=== PATIENT | male | born 1995 | race Caucasian/White ===

== ENCOUNTER 2016-08-04 00:35 | Emergency (ER) | payer MEDICAID ==
[~2016-08-04] VITALS: Ht 185.4 cm; Wt 65.5 kg
[~2016-08-04 00:35] MED LIST: DICY10CA3 PO; HYDR-3240 PO; INSU100C5 SQ-INSULIN; INSU100V8 SQ; RANI150C PO
[2016-08-04 00:36] VITALS: BP 135/89
[2016-08-04] MEDS ORDERED: CYCLOBENZAPRINE 10 MG TABLET ONE (01:14)
[2016-08-04] MEDS ORDERED: HYDROcodone/APAP 5/325 TABLET ONE (01:14)
[2016-08-04] MEDS ORDERED: HYDROcodone/APAP 5/325 TABLET PO ONE (01:30)
[2016-08-04] MEDS ORDERED: CYCLOBENZAPRINE 10 MG TABLET PO SCH (01:30)
== END 2016-08-04 01:46 | disposition home or self-care (01) ==
LOC: ED 01:36
DX: S33.5XXA Sprain of ligaments of lumbar spine, initial encounter (principal); S30.0XXA Contusion of lower back and pelvis, initial encounter; E11.65 Type 2 diabetes mellitus with hyperglycemia; W11.XXXA Fall on and from ladder, initial encounter; Y93.89 Activity, other specified; Y92.89 Other specified places as the place of occurrence of the external cause; Y99.8 Other external cause status
CPT/HCPCS: 99283

== ENCOUNTER 2016-11-14 01:54 | Emergency (ER) | payer MEDICAID ==
[~2016-11-14] VITALS: Ht 182.9 cm; Wt 63.7 kg
[2016-11-14] MEDS ORDERED: LIDOCAINE 1%, 20ML ONE (03:22)
[2016-11-14] MEDS ORDERED: OXYcodone/APAP 5/325MG TABLET ONE (03:22)
[2016-11-14] MEDS ORDERED: LIDOCAINE 1%, 20ML SQ ONE (03:30)
[2016-11-14] MEDS ORDERED: SULFAMETH./TRIMETHOPRIM DS 800MG/160MG TABLET PO ONE (03:30)
[2016-11-14] MEDS ORDERED: OXYcodone/APAP 5/325MG TABLET PO ONE (03:30)
[2016-11-14] MEDS ORDERED: SULFAMETH./TRIMETHOPRIM DS 800MG/160MG TABLET ONE (03:49)
[2016-11-14 04:31] VITALS: BP 131/78
== END 2016-11-14 04:40 | disposition home or self-care (01) ==
LOC: ED 02:53
DX: L02.416 Cutaneous abscess of left lower limb (principal); E11.9 Type 2 diabetes mellitus without complications; F17.210 Nicotine dependence, cigarettes, uncomplicated
CPT/HCPCS: 10060; 99283

== ENCOUNTER 2016-11-15 12:18 | Emergency (ER) | payer MEDICAID ==
[~2016-11-15] VITALS: Ht 182.9 cm; Wt 62.7 kg
[2016-11-15 12:23] VITALS: BP 128/80
== END 2016-11-15 12:45 | disposition home or self-care (01) ==
LOC: ED 12:43
DX: Z48.01 Encounter for change or removal of surgical wound dressing (principal)
CPT/HCPCS: 99283

== ENCOUNTER 2016-12-01 15:49 | Emergency (ER) | payer MEDICAID ==
[~2016-12-01] VITALS: Ht 185.4 cm; Wt 63.0 kg
[2016-12-01 15:57] VITALS: BP 135/80
[2016-12-01] MEDS ORDERED: IBUPROFEN 200 MG TABLET PO ONE (16:30)
[2016-12-01] MEDS ORDERED: CEFAZOLIN 1,000 MG IM ONE (16:30)
[2016-12-01] MEDS ORDERED: CEFAZOLIN 1,000 MG ONE (17:11)
[2016-12-01] MEDS ORDERED: IBUPROFEN 200 MG TABLET ONE (17:11)
== END 2016-12-01 17:38 | disposition home or self-care (01) ==
LOC: ED 17:05
DX: L03.116 Cellulitis of left lower limb (principal); E11.9 Type 2 diabetes mellitus without complications
CPT/HCPCS: 73564; 96372; 99284; J0690

== ENCOUNTER 2017-05-18 06:10 | Emergency (ER) | payer MEDICAID ==
[~2017-05-18] VITALS: Ht 180.3 cm; Wt 68.0 kg
[2017-05-18] MEDS ORDERED: SODIUM CHLORIDE FLUSH 10ML SYR IVF ONE (07:00)
[2017-05-18] MEDS ORDERED: SODIUM CHLORIDE 0.9% 1,000ML IVBOLUS ONE (07:00)
[2017-05-18] MEDS ORDERED: MORPHINE SULFATE 4 MG/ML, 1ML ONE (07:24)
[2017-05-18] MEDS ORDERED: ONDANSETRON 2MG/ML, 2ML ONE (07:24)
[2017-05-18 07:28] LABS: ALANINE AMINOTRANSFERASE 28 U/L (12-78); ALBUMIN 3.4 g/dL (3.4-5.0); ANION GAP 9 mmol/L (5-15); CALCIUM 8.4 mg/dL (8.5-10.1); CHLORIDE 105 mmol/L (98-107); MEAN CORPUSCULAR HEMOGLOBIN 30.5 pg (27.5-34.5); MEAN CORPUSCULAR HGB CONC 33.7 g/dL (33.2-36.2); MEAN CORPUSCULAR VOLUME 90.5 fL (81-97); MEAN PLATELET VOLUME 8.8 fL (7.4-10.4); PLATELET COUNT 252 x10^3/uL (130-400); RED BLOOD COUNT 4.43 x10^6/uL (4.38-5.82); RED CELL DISTRIBUTION WIDTH 12.6 % (9.4-14.8)
[2017-05-18 07:30] LABS: ALKALINE PHOSPHATASE 101 U/L (45-117); BILIRUBIN,TOTAL 0.3 mg/dL (0.2-1.0); TOTAL PROTEIN 6.3 g/dL (6.4-8.2)
[2017-05-18] MEDS ORDERED: ONDANSETRON 2MG/ML, 2ML IVPush ONE (07:30)
[2017-05-18] MEDS ORDERED: morphine SULFATE 10 MG/ML, 1ML IVPush ONE (07:30)
[2017-05-18 07:37] LABS: PH, VENOUS 7.398 pH (7.320-7.420)
[2017-05-18 07:38] LABS: BASOPHILS # (AUTO) 0.08 x10^3/uL (0-0.1); BASOPHILS % (AUTO) 1 % (0-1); EOSINOPHILS # (AUTO) 0.19 x10^3/uL (0-0.4); EOSINOPHILS % (AUTO) 2 % (1-7); LYMPHOCYTES # (AUTO) 2.92 x10^3/uL (1-3.4); LYMPHOCYTES % (AUTO) 31 % (22-44); MD SCAN; MONOCYTES # (AUTO) 0.62 x10^3/uL (0.2-0.8); MONOCYTES % (AUTO) 7 % (2-9); NEUTROPHILS # (AUTO) 5.62 x10^3/uL (1.8-6.8); NEUTROPHILS % (AUTO) 60 % (42-75)
[2017-05-18] MEDS ORDERED: OMNIPAQUE 350 MG/ML, 100ML BOTTLE ONE (07:53)
[2017-05-18] MEDS ORDERED: MAALOX/HYOSCYAMINE/LIDOCAINE 45 ML BTL PO ONE (08:00)
[2017-05-18] MEDS ORDERED: MAALOX/HYOSCYAMINE/LIDOCAINE 45 ML BTL ONE (08:02)
[2017-05-18 08:27] LABS: MICROSCOPIC AUTO
[2017-05-18 08:30] LABS: CULTURE INDICATED? YES
[2017-05-18 08:35] LABS: AMPHETAMINE SCREEN, URINE Negative (Negative); BARBITURATE SCREEN, URINE Negative (Negative); BENZODIAZEPINE SCREEN, URINE Negative (Negative); CANNABINOID SCREEN, URINE Negative (Negative); COCAINE SCREEN, URINE Negative (Negative); METHADONE SCREEN, URINE Negative (Negative); OPIATE SCREEN, URINE Positive (Negative)
[2017-05-18 08:38] LABS: ACETONE, SERUM Negative (Negative)
[2017-05-18 10:32] VITALS: BP 133/90
== END 2017-05-18 10:34 | disposition home or self-care (01) ==
LOC: ED 07:49
DX: K29.70 Gastritis, unspecified, without bleeding (principal); K21.9 Gastro-esophageal reflux disease without esophagitis; N39.0 Urinary tract infection, site not specified; E11.65 Type 2 diabetes mellitus with hyperglycemia; E11.649 Type 2 diabetes mellitus with hypoglycemia without coma; F17.200 Nicotine dependence, unspecified, uncomplicated; E11.10 Type 2 diabetes mellitus with ketoacidosis without coma
CPT/HCPCS: 36415; 74177; 80053; 80307; 81001; 82010; 82803; 83690; 85025; 86677; 87086; 87491; 87591; 96361; 96374; 96375; 99285; J2270; J2405; J7030; Q9967

== ENCOUNTER 2017-08-06 04:30 | Inpatient (IN) | payer MEDICAID ==
[~2017-08-06] VITALS: Ht 182.9 cm; Wt 60.7 kg
[~2017-08-06 04:30] MED LIST changes: +INSU100V SQ-INSULIN
[2017-08-06] MEDS ORDERED: MORPHINE SULFATE 4 MG/ML, 1ML ONE ×3 (04:50→07:03)
[2017-08-06] MEDS ORDERED: METOCLOPRAMIDE 5 MG/ML, 2ML ONE (04:51)
[2017-08-06] MEDS ORDERED: FAMOTIDINE 20 MG/2 ML ONE (04:59)
[2017-08-06] MEDS: MORPHINE SULFATE 4 MG/ML, 1ML IVPush PRN ×2 (05:00→06:18)
[2017-08-06] MEDS ORDERED: METOCLOPRAMIDE 5 MG/ML, 2ML IVPush ONE (05:00)
[2017-08-06] MEDS ORDERED: FAMOTIDINE 20 MG/2 ML IVP ONE (05:00)
[2017-08-06] MEDS ORDERED: SODIUM CHLORIDE 0.9% 1,000ML IVBOLUS ONE ×3 (05:00→07:30)
[2017-08-06 05:40] LABS: BASOPHILS # (AUTO) 0.03 x10^3/uL (0-0.1); BASOPHILS % (AUTO) 0 % (0-1); EOSINOPHILS # (AUTO) 0.02 x10^3/uL (0-0.4); EOSINOPHILS % (AUTO) 0 % (1-7); LYMPHOCYTES # (AUTO) 2.58 x10^3/uL (1-3.4); LYMPHOCYTES % (AUTO) 24 % (22-44); MD NO; MEAN CORPUSCULAR HEMOGLOBIN 31.2 pg (27.5-34.5); MEAN CORPUSCULAR HGB CONC 33.3 g/dL (33.2-36.2); MEAN CORPUSCULAR VOLUME 93.8 fL (81-97); MEAN PLATELET VOLUME 9.5 fL (7.4-10.4); MONOCYTES # (AUTO) 0.46 x10^3/uL (0.2-0.8); MONOCYTES % (AUTO) 4 % (2-9); NEUTROPHILS # (AUTO) 7.82 x10^3/uL (1.8-6.8); NEUTROPHILS % (AUTO) 72 % (42-75); PLATELET COUNT 263 x10^3/uL (130-400); RED BLOOD COUNT 5.26 x10^6/uL (4.38-5.82); RED CELL DISTRIBUTION WIDTH 12.5 % (9.4-14.8)
[2017-08-06 05:42] LABS: CULTURE INDICATED? NO; MICROSCOPIC NOT IND
[2017-08-06 05:53] LABS: ALANINE AMINOTRANSFERASE 51 U/L (12-78); ALBUMIN 4.1 g/dL (3.4-5.0); ANION GAP 24 mmol/L (5-15); CALCIUM 9.2 mg/dL (8.5-10.1); CHLORIDE 95 mmol/L (98-107); CREATININE 1.52 mg/dL (0.7-1.3); PH, VENOUS 7.186 pH (7.320-7.420)
[2017-08-06 05:56] LABS: ALKALINE PHOSPHATASE 164 U/L (45-117); TOTAL PROTEIN 7.9 g/dL (6.4-8.2)
[2017-08-06] MEDS ORDERED: FENTANYL PF 100 MCG/2ML IVPush STA (06:09)
[2017-08-06 06:13] LABS: AMPHETAMINE SCREEN, URINE Negative (Negative); BARBITURATE SCREEN, URINE Negative (Negative); BENZODIAZEPINE SCREEN, URINE Negative (Negative); CANNABINOID SCREEN, URINE Negative (Negative); COCAINE SCREEN, URINE Negative (Negative); METHADONE SCREEN, URINE Negative (Negative); OPIATE SCREEN, URINE Negative (Negative)
[2017-08-06] MEDS ORDERED: PROMETHAZINE 25 MG/ML, 1ML ONE (06:13)
[2017-08-06] MEDS ORDERED: ONDANSETRON ODT 4 MG PO ONE (06:30)
[2017-08-06] MEDS ORDERED: PROMETHAZINE 25 MG/ML, 1ML IM ONE (06:30)
[2017-08-06] MEDS ORDERED: INSULIN REGULAR 100 UNITS/ML, 3ML VIAL SQ-INSULIN STA (06:35)
[2017-08-06] MEDS ORDERED: FENTANYL PF 100 MCG/2ML ONE (06:41)
[2017-08-06 06:42] LABS: ACETONE, SERUM Large (80mg/dL) mg/dL (Negative)
[2017-08-06] MEDS ORDERED: INSULIN REGULAR 100 UNITS/ML, 3ML VIAL IVPush ONE (07:00)
[2017-08-06] MEDS ORDERED: INSULIN REGULAR 100 UNITS/ML, 3ML VIAL ONE (07:04)
[2017-08-06] MEDS ORDERED: MORPHINE SULFATE 4 MG/ML, 1ML IVPush ONE (07:30)
[2017-08-06] MEDS ORDERED: DOCUSATE 100 MG CAPSULE PO PRN (09:00)
[2017-08-06] MEDS ORDERED: POLYETHYLENE GLYCOL 17 GM PACKET PO PRN (09:00)
[2017-08-06] MEDS ORDERED: BISACODYL 10 MG SUPP PR PRN (09:00)
[2017-08-06] MEDS ORDERED: ONDANSETRON 2MG/ML, 2ML IVPush PRN (09:00)
[2017-08-06] MEDS ORDERED: KETOROLAC 30 MG/1 ML IM PRN (09:00)
[2017-08-06] MEDS ORDERED: ACETAMINOPHEN 325 MG TABLET PO PRN (09:00)
[2017-08-06 09:45] LABS: ANION GAP 22 mmol/L (5-15); CALCIUM 8.5 mg/dL (8.5-10.1); CHLORIDE 109 mmol/L (98-107); CREATININE 1.54 mg/dL (0.7-1.3)
[2017-08-06] MEDS: FAMOTIDINE 20 MG TABLET PO SCH ×2 (09:59→20:15)
[2017-08-06] MEDS ORDERED: SODIUM CHLORIDE 0.9% 1,000 ML IV SCH ×2 (10:00→12:02)
[2017-08-06] MEDS ORDERED: REGULAR INSULIN 62.5 UNITS in SODIUM CHLORIDE 0.9% 249.375 ML IV PRN (10:00)
[2017-08-06 12:07] LABS: HEMOGLOBIN A1C 11.1 % (4.2-6.3)
[2017-08-06] MEDS: HEPARIN 5,000 UNITS/ML, 1ML SQ SCH ×2 (12:12→20:15)
[2017-08-06 13:06] LABS: ALBUMIN 3.9 g/dL (3.4-5.0); ANION GAP 21 mmol/L (5-15); CALCIUM 8.5 mg/dL (8.5-10.1); CHLORIDE 113 mmol/L (98-107); CREATININE 1.39 mg/dL (0.7-1.3)
[2017-08-06] MEDS: D5%-0.45% NACL 1,000 ML IV SCH (16:30)
[2017-08-06 18:15] LABS: ANION GAP 11 mmol/L (5-15); CALCIUM 8.8 mg/dL (8.5-10.1); CHLORIDE 117 mmol/L (98-107); CREATININE 1.17 mg/dL (0.7-1.3)
[2017-08-06 21:21] LABS: ALBUMIN 3.4 g/dL (3.4-5.0); ANION GAP 10 mmol/L (5-15); CALCIUM 8.1 mg/dL (8.5-10.1); CHLORIDE 115 mmol/L (98-107); CREATININE 1.07 mg/dL (0.7-1.3)
[2017-08-07 02:10] LABS: ALBUMIN 3.3 g/dL (3.4-5.0); ANION GAP 9 mmol/L (5-15); CALCIUM 8.3 mg/dL (8.5-10.1); CHLORIDE 113 mmol/L (98-107); CREATININE 1.06 mg/dL (0.7-1.3)
[2017-08-07] MEDS: HEPARIN 5,000 UNITS/ML, 1ML SQ SCH (04:17)
[2017-08-07] MEDS: D5%-0.45% NACL 1,000 ML IV SCH (04:17)
[2017-08-07 04:19] VITALS: BP 97/58
[2017-08-07 05:18] LABS: MEAN CORPUSCULAR HEMOGLOBIN 31.2 pg (27.5-34.5); MEAN CORPUSCULAR HGB CONC 34.1 g/dL (33.2-36.2); MEAN CORPUSCULAR VOLUME 91.5 fL (81-97); MEAN PLATELET VOLUME 8.2 fL (7.4-10.4); PLATELET COUNT 235 x10^3/uL (130-400); RED BLOOD COUNT 4.24 x10^6/uL (4.38-5.82); RED CELL DISTRIBUTION WIDTH 12.5 % (9.4-14.8)
[2017-08-07 05:21] LABS: ANION GAP 9 mmol/L (5-15); CHLORIDE 112 mmol/L (98-107)
[2017-08-07 05:23] LABS: CREATININE 0.94 mg/dL (0.7-1.3)
[2017-08-07 06:24] LABS: BASOPHILS # (AUTO) 0.04 x10^3/uL (0-0.1); BASOPHILS % (AUTO) 0 % (0-1); EOSINOPHILS # (AUTO) 0.13 x10^3/uL (0-0.4); EOSINOPHILS % (AUTO) 1 % (1-7); LYMPHOCYTES # (AUTO) 3.69 x10^3/uL (1-3.4); LYMPHOCYTES % (AUTO) 38 % (22-44); MD SCAN; MONOCYTES # (AUTO) 0.51 x10^3/uL (0.2-0.8); MONOCYTES % (AUTO) 5 % (2-9); NEUTROPHILS # (AUTO) 5.23 x10^3/uL (1.8-6.8); NEUTROPHILS % (AUTO) 55 % (42-75)
[2017-08-07] MEDS ORDERED: INSULIN GLARGINE 100 UNITS/ML, PEN SQ-INSULIN SCH (07:00)
[2017-08-07] MEDS ORDERED: INSULIN LISPRO 100 UNITS/ML, PEN SQ-INSULIN SCH (09:00)
[2017-08-07] MEDS: FAMOTIDINE 20 MG TABLET PO SCH (10:23)
== END 2017-08-07 12:35 | disposition home or self-care (01) | DRG 682 ==
LOC: ED 06:02 → CCU 06:33 → DCLOUNGE 08-07 12:16
PROVIDERS: ADMIT Hospitalist; ATTEND Hospitalist
DX: N17.9 Acute kidney failure, unspecified (principal); E10.10 Type 1 diabetes mellitus with ketoacidosis without coma; D72.829 Elevated white blood cell count, unspecified; E86.0 Dehydration; Z79.4 Long term (current) use of insulin; F17.200 Nicotine dependence, unspecified, uncomplicated; Z83.49 Family history of other endocrine, nutritional and metabolic diseases
CPT/HCPCS: 36415; 80048; 80053; 80307; 81003; 82010; 82040; 82803; 82947; 82962; 83036; 83690; 83735; 84100; 85025; 85379; 87081; 93005; 96361; 96372; 96374; 96375; 96376; J1644; J1815; J1885; J2550; J3010; J2765; J7030; J7050; S0028

== ENCOUNTER 2017-11-22 23:49 | Emergency (ER) | payer MEDICAID ==
[~2017-11-22] VITALS: Ht 185.4 cm; Wt 66.2 kg
[2017-11-22 23:56] VITALS: BP 143/81
[2017-11-23] MEDS ORDERED: SODIUM CHLORIDE FLUSH 10ML SYR IVF ONE (00:30)
[2017-11-23] MEDS ORDERED: SODIUM CHLORIDE 0.9% 1,000ML IVBOLUS ONE (00:30)
[2017-11-23] MEDS ORDERED: MORPHINE SULFATE 4 MG/ML, 1ML IVPush PRN (00:30)
[2017-11-23] MEDS ORDERED: ONDANSETRON 2MG/ML, 2ML IVPush ONE (00:30)
[2017-11-23 00:32] LABS: BASOPHILS # (AUTO) 0.05 x10^3/uL (0-0.1); BASOPHILS % (AUTO) 1 % (0-1); EOSINOPHILS # (AUTO) 0.15 x10^3/uL (0-0.4); EOSINOPHILS % (AUTO) 2 % (1-7); LYMPHOCYTES # (AUTO) 2.98 x10^3/uL (1-3.4); LYMPHOCYTES % (AUTO) 36 % (22-44); MD NO; MEAN CORPUSCULAR HEMOGLOBIN 31.3 pg (27.5-34.5); MEAN CORPUSCULAR VOLUME 92.2 fL (81-97); MEAN PLATELET VOLUME 9.6 fL (7.4-10.4); MONOCYTES # (AUTO) 0.52 x10^3/uL (0.2-0.8); MONOCYTES % (AUTO) 6 % (2-9); NEUTROPHILS # (AUTO) 4.64 x10^3/uL (1.8-6.8); NEUTROPHILS % (AUTO) 56 % (42-75); PLATELET COUNT 231 x10^3/uL (130-400); RED BLOOD COUNT 4.42 x10^6/uL (4.38-5.82); RED CELL DISTRIBUTION WIDTH 12.2 % (9.4-14.8)
[2017-11-23 00:45] LABS: ALANINE AMINOTRANSFERASE 54 U/L (12-78); ALBUMIN 3.6 g/dL (3.4-5.0); ANION GAP 7 mmol/L (5-15); CALCIUM 8.9 mg/dL (8.5-10.1); CHLORIDE 110 mmol/L (98-107)
[2017-11-23 00:47] LABS: ALKALINE PHOSPHATASE 102 U/L (45-117); BILIRUBIN,TOTAL 0.4 mg/dL (0.2-1.0); CREATININE 1.05 mg/dL (0.7-1.3); TOTAL PROTEIN 6.7 g/dL (6.4-8.2)
[2017-11-23 00:53] LABS: CULTURE INDICATED? NO; MICROSCOPIC AUTO
== END 2017-11-23 01:27 | disposition home or self-care (01) ==
LOC: ED 11-23 00:55
DX: K29.00 Acute gastritis without bleeding (principal); F17.210 Nicotine dependence, cigarettes, uncomplicated; K21.9 Gastro-esophageal reflux disease without esophagitis; E11.10 Type 2 diabetes mellitus with ketoacidosis without coma
CPT/HCPCS: 36415; 80053; 81001; 83690; 85025; 86677; 96360; 99284; 99406; J7030

== ENCOUNTER 2017-12-01 13:47 | Inpatient (IN) | payer MEDICAID, OTHER ==
[~2017-12-01] VITALS: Ht 185.4 cm; Wt 68.4 kg
[2017-12-01] MEDS ORDERED: SODIUM CHLORIDE FLUSH 10ML SYR IVF ONE (14:30)
[2017-12-01] MEDS ORDERED: SODIUM CHLORIDE 0.9% 1,000ML IVBOLUS ONE ×2 (14:30→16:00)
[2017-12-01 14:31] LABS: BASOPHILS # (AUTO) 0.08 x10^3/uL (0-0.1); BASOPHILS % (AUTO) 1 % (0-1); EOSINOPHILS # (AUTO) 0.03 x10^3/uL (0-0.4); EOSINOPHILS % (AUTO) 0 % (1-7); LYMPHOCYTES # (AUTO) 1.81 x10^3/uL (1-3.4); LYMPHOCYTES % (AUTO) 13 % (22-44); MD NO; MEAN CORPUSCULAR HEMOGLOBIN 31.3 pg (27.5-34.5); MEAN CORPUSCULAR VOLUME 94.8 fL (81-97); MONOCYTES # (AUTO) 0.46 x10^3/uL (0.2-0.8); MONOCYTES % (AUTO) 3 % (2-9); NEUTROPHILS # (AUTO) 12.05 x10^3/uL (1.8-6.8); NEUTROPHILS % (AUTO) 84 % (42-75); PLATELET COUNT 253 x10^3/uL (130-400); RED BLOOD COUNT 5.09 x10^6/uL (4.38-5.82); RED CELL DISTRIBUTION WIDTH 12.7 % (9.4-14.8)
[2017-12-01 14:43] LABS: ALANINE AMINOTRANSFERASE 43 U/L (12-78); ALBUMIN 4.2 g/dL (3.4-5.0); ANION GAP 19 mmol/L (5-15); CALCIUM 9.7 mg/dL (8.5-10.1); CHLORIDE 97 mmol/L (98-107); CREATININE 1.28 mg/dL (0.7-1.3)
[2017-12-01 14:45] LABS: ALKALINE PHOSPHATASE 152 U/L (45-117); BILIRUBIN,TOTAL 0.9 mg/dL (0.2-1.0); TOTAL PROTEIN 7.7 g/dL (6.4-8.2)
[2017-12-01] MEDS ORDERED: KETOROLAC 30 MG/1 ML ONE (15:14)
[2017-12-01 15:22] LABS: MICROSCOPIC NOT IND
[2017-12-01 15:26] LABS: ACETONE, SERUM Large (80mg/dL) mg/dL (Negative)
[2017-12-01] MEDS ORDERED: KETOROLAC 30 MG/1 ML IVPush ONE (15:30)
[2017-12-01 15:32] LABS: CULTURE INDICATED? NO
[2017-12-01] MEDS: REGULAR INSULIN 62.5 UNITS in SODIUM CHLORIDE 0.9% 249.375 ML IV PRN ×2 (15:45→16:29)
[2017-12-01] MEDS: D5%-0.45NACL+KCL 20MEQ 1,000 ML IV SCH ×2 (15:59→23:17)
[2017-12-01] MEDS ORDERED: LABETALOL 5MG/ML, 20ML IVPush PRN (16:00)
[2017-12-01] MEDS ORDERED: SODIUM CHLORIDE FLUSH 10ML SYR IVF PRN (16:00)
[2017-12-01] MEDS ORDERED: REGULAR INSULIN 62.5 UNITS in SODIUM CHLORIDE 0.9% 249.375 ML IV PRN (16:00)
[2017-12-01] MEDS ORDERED: ONDANSETRON ODT 4 MG PO PRN (16:00)
[2017-12-01] MEDS ORDERED: ACETAMINOPHEN 325 MG TABLET PO PRN (16:00)
[2017-12-01] MEDS ORDERED: ENOXAPARIN 40 MG/0.4 ML SQ SCH (16:00)
[2017-12-01] MEDS ORDERED: ONDANSETRON 2MG/ML, 2ML IVPush PRN (16:00)
[2017-12-01] MEDS ORDERED: KETOROLAC 30 MG/1 ML IV PRN (16:00)
[2017-12-01] MEDS ORDERED: POLYETHYLENE GLYCOL 17 GM PACKET PO PRN (16:00)
[2017-12-01] MEDS: SODIUM CHLORIDE 0.9% 1,000 ML IV SCH ×2 (16:38→21:59)
[2017-12-01 18:16] LABS: ANION GAP 14 mmol/L (5-15); CALCIUM 7.6 mg/dL (8.5-10.1); CHLORIDE 107 mmol/L (98-107); CREATININE 1.23 mg/dL (0.7-1.3)
[2017-12-01 22:11] LABS: ANION GAP 9 mmol/L (5-15); CALCIUM 8.2 mg/dL (8.5-10.1); CHLORIDE 111 mmol/L (98-107); CREATININE 0.98 mg/dL (0.7-1.3)
[2017-12-02 02:36] LABS: ANION GAP 6 mmol/L (5-15); CALCIUM 7.7 mg/dL (8.5-10.1); CHLORIDE 113 mmol/L (98-107); CREATININE 0.72 mg/dL (0.7-1.3)
[2017-12-02 04:00] VITALS: BP 99/47
[2017-12-02] MEDS: D5%-0.45NACL+KCL 20MEQ 1,000 ML IV SCH (04:10)
[2017-12-02 06:51] LABS: ALANINE AMINOTRANSFERASE 29 U/L (12-78); ALBUMIN 2.7 g/dL (3.4-5.0); ANION GAP 7 mmol/L (5-15); CALCIUM 7.9 mg/dL (8.5-10.1); CHLORIDE 111 mmol/L (98-107); CREATININE 0.79 mg/dL (0.7-1.3)
[2017-12-02 06:55] LABS: ALKALINE PHOSPHATASE 83 U/L (45-117); BILIRUBIN,TOTAL 0.6 mg/dL (0.2-1.0); CHOLESTEROL, TOTAL 100 mg/dL (140-239); HDL CHOL % 50 % (26-37); HDL CHOLESTEROL (DIRECT) 50 mg/dL (40-60); LDL CHOLESTEROL,CALCULATED 20 mg/dL (54-169); LDL/HDL RATIO 0.4 (0.5-3.0); TOTAL PROTEIN 5.2 g/dL (6.4-8.2); TRIGLYCERIDES 149 mg/dL (50-200); VLDL CHOLESTEROL 30 mg/dL (0-25)
[2017-12-02 06:58] LABS: MEAN CORPUSCULAR HEMOGLOBIN 30.7 pg (27.5-34.5); MEAN CORPUSCULAR HGB CONC 33.5 g/dL (33.2-36.2); MEAN CORPUSCULAR VOLUME 91.8 fL (81-97); MEAN PLATELET VOLUME 9.1 fL (7.4-10.4); PLATELET COUNT 222 x10^3/uL (130-400); RED BLOOD COUNT 4.01 x10^6/uL (4.38-5.82); RED CELL DISTRIBUTION WIDTH 12.7 % (9.4-14.8)
[2017-12-02] MEDS ORDERED: INSULIN GLARGINE 100 UNITS/ML, PEN SQ-INSULIN SCH (08:30)
[2017-12-02 08:54] LABS: HEMOGLOBIN A1C 10.1 % (4.2-6.3)
[2017-12-02] MEDS ORDERED: SENNA/DOCUSATE TABLET PO SCH (09:00)
[2017-12-02] MEDS ORDERED: D5%-0.45NACL+KCL 20MEQ 1,000 ML IV SCH (09:00)
[2017-12-02 09:12] LABS: BASOPHILS # (AUTO) 0.05 x10^3/uL (0-0.1); BASOPHILS % (AUTO) 1 % (0-1); EOSINOPHILS # (AUTO) 0.19 x10^3/uL (0-0.4); EOSINOPHILS % (AUTO) 2 % (1-7); LYMPHOCYTES # (AUTO) 3.08 x10^3/uL (1-3.4); LYMPHOCYTES % (AUTO) 39 % (22-44); MD SCAN; MONOCYTES # (AUTO) 0.37 x10^3/uL (0.2-0.8); MONOCYTES % (AUTO) 5 % (2-9); NEUTROPHILS # (AUTO) 4.31 x10^3/uL (1.8-6.8); NEUTROPHILS % (AUTO) 54 % (42-75)
[2017-12-02] MEDS ORDERED: REGULAR INSULIN 62.5 UNITS in SODIUM CHLORIDE 0.9% 249.375 ML IV PRN (10:00)
[2017-12-02] MEDS ORDERED: INSULIN LISPRO 100 UNITS/ML, PEN SQ-INSULIN SCH (10:20)
== END 2017-12-02 20:33 | disposition left against medical advice (07) | DRG 682 ==
LOC: ED 15:54 → EDIP 15:55 → ED 16:21 → CCU 16:45
PROVIDERS: ADMIT Internal Medicine; ATTEND Internal Medicine
DX: N17.9 Acute kidney failure, unspecified (principal); E10.10 Type 1 diabetes mellitus with ketoacidosis without coma; E87.1 Hypo-osmolality and hyponatremia; D72.829 Elevated white blood cell count, unspecified; Z79.4 Long term (current) use of insulin; Z53.21 Procedure and treatment not carried out due to patient leaving prior to being seen by health care provider
CPT/HCPCS: 71045; 80048; 80053; 80061; 81003; 82010; 82800; 82962; 83036; 83690; 83735; 84100; 84443; 85025; 87081; 93005; 96365; 96375; 99291; J1650; J1885; J1815; J3480; J7030

== ENCOUNTER 2018-03-08 05:39 | Inpatient (IN) | payer MEDICAID ==
[~2018-03-08] VITALS: Ht 182.9 cm; Wt 68.2 kg
[2018-03-08] MEDS ORDERED: FAMOTIDINE 20 MG/2 ML ONE (05:52)
[2018-03-08] MEDS ORDERED: MAALOX/HYOSCYAMINE/LIDOCAINE 45 ML BTL ONE (05:52)
[2018-03-08] MEDS ORDERED: MORPHINE SULFATE 4 MG/ML, 1ML ONE ×2 (05:53→06:19)
[2018-03-08] MEDS: MORPHINE SULFATE 4 MG/ML, 1ML IVPush PRN ×2 (05:55→06:21)
[2018-03-08] MEDS ORDERED: FAMOTIDINE 20 MG/2 ML IVP ONE (06:00)
[2018-03-08] MEDS ORDERED: SODIUM CHLORIDE 0.9% 1,000ML IVBOLUS ONE ×2 (06:00→07:00)
[2018-03-08] MEDS ORDERED: SODIUM CHLORIDE FLUSH 10ML SYR IVF ONE (06:00)
[2018-03-08] MEDS ORDERED: MAALOX/HYOSCYAMINE/LIDOCAINE 45 ML BTL PO ONE (06:00)
[2018-03-08 06:05] LABS: BASOPHILS # (AUTO) 0.02 x10^3/uL (0-0.1); BASOPHILS % (AUTO) 0 % (0-1); EOSINOPHILS # (AUTO) 0.09 x10^3/uL (0-0.4); EOSINOPHILS % (AUTO) 1 % (1-7); LYMPHOCYTES # (AUTO) 1.57 x10^3/uL (1-3.4); LYMPHOCYTES % (AUTO) 22 % (22-44); MD NO; MEAN CORPUSCULAR HEMOGLOBIN 30.8 pg (27.5-34.5); MEAN CORPUSCULAR HGB CONC 34.1 g/dL (33.2-36.2); MEAN CORPUSCULAR VOLUME 90.4 fL (81-97); MEAN PLATELET VOLUME 8.6 fL (7.4-10.4); MONOCYTES # (AUTO) 0.41 x10^3/uL (0.2-0.8); MONOCYTES % (AUTO) 6 % (2-9); NEUTROPHILS # (AUTO) 5.12 x10^3/uL (1.8-6.8); NEUTROPHILS % (AUTO) 71 % (42-75); PLATELET COUNT 261 x10^3/uL (130-400); RED BLOOD COUNT 4.93 x10^6/uL (4.38-5.82); RED CELL DISTRIBUTION WIDTH 12.6 % (9.4-14.8)
[2018-03-08 06:12] LABS: ACETONE, SERUM Large (80mg/dL) mg/dL (Negative)
[2018-03-08 06:17] LABS: ALANINE AMINOTRANSFERASE 24 U/L (12-78); ALBUMIN 3.6 g/dL (3.4-5.0); ANION GAP 12 mmol/L (5-15); CALCIUM 8.5 mg/dL (8.5-10.1); CHLORIDE 104 mmol/L (98-107); CREATININE 0.86 mg/dL (0.7-1.3)
[2018-03-08 06:19] LABS: ALKALINE PHOSPHATASE 113 U/L (45-117); BILIRUBIN,TOTAL 0.4 mg/dL (0.2-1.0); TOTAL PROTEIN 6.8 g/dL (6.4-8.2)
[2018-03-08] MEDS ORDERED: INSULIN REGULAR 100 UNITS/ML, 3ML VIAL IVPush ONE (07:00)
[2018-03-08] MEDS ORDERED: INSULIN REGULAR 100 UNITS/ML, 3ML VIAL ONE (07:05)
[2018-03-08] MEDS ORDERED: DICYCLOMINE 10 MG/ML, 2ML ONE (07:14)
[2018-03-08] MEDS ORDERED: KETOROLAC 30 MG/1 ML ONE (07:14)
[2018-03-08] MEDS ORDERED: KETOROLAC 30 MG/1 ML IVPush ONE (07:30)
[2018-03-08] MEDS ORDERED: DICYCLOMINE 10 MG/ML, 2ML IM ONE (07:30)
[2018-03-08] MEDS ORDERED: METOCLOPRAMIDE 5 MG/ML, 2ML IVPush SCH (08:00)
[2018-03-08] MEDS ORDERED: ONDANSETRON 2MG/ML, 2ML IVPush PRN ×2 (08:00→14:00)
[2018-03-08] MEDS ORDERED: DEXTROSE 50%, 50ML SYRINGE IVPush PRN (08:00)
[2018-03-08] MEDS ORDERED: hydrALAzine 20 MG/ML, 1ML IVPush PRN (08:00)
[2018-03-08] MEDS ORDERED: DICYCLOMINE 10 MG/ML, 2ML IM SCH (08:00)
[2018-03-08] MEDS ORDERED: DEXTROSE 4 GM TAB.CHEW PO PRN (08:00)
[2018-03-08] MEDS ORDERED: GLUCAGON 1 MG IM PRN (08:00)
[2018-03-08] MEDS ORDERED: OMNIPAQUE 350 MG/ML, 100ML BOTTLE ONE (08:18)
[2018-03-08 08:33] VITALS: BP 124/78
[2018-03-08] MEDS: ENOXAPARIN 40 MG/0.4 ML SQ SCH (09:34)
[2018-03-08] MEDS: SODIUM CHLORIDE 0.45% 1,000 ML IV SCH ×3 (09:35→21:14)
[2018-03-08] MEDS: SODIUM CHLORIDE FLUSH 10ML SYR IVF SCH ×2 (09:35→21:18)
[2018-03-08] MEDS: INSULIN GLARGINE 100 UNITS/ML, PEN SQ-INSULIN SCH ×2 (10:01→21:17)
[2018-03-08 10:33] LABS: HEMOGLOBIN A1C 8.9 % (4.2-6.3)
[2018-03-08] MEDS ORDERED: INSULIN LISPRO 100 UNITS/ML, PEN SQ-INSULIN SCH ×3 (11:00→17:00)
[2018-03-08] MEDS: DICYCLOMINE 10 MG/ML, 2ML IM SCH ×2 (13:00→21:18)
[2018-03-08 13:47] VITALS: BP 120/70
[2018-03-08] MEDS: KETOROLAC 30 MG/1 ML IV PRN (16:31)
[2018-03-08] MEDS: INSULIN LISPRO 100 UNITS/ML, PEN SQ-INSULIN SCH ×2 (16:32→21:17)
[2018-03-08 18:52] VITALS: BP 127/79
[2018-03-09 01:09] VITALS: BP 118/74
[2018-03-09] MEDS: DICYCLOMINE 10 MG/ML, 2ML IM SCH ×3 (02:42→15:00)
[2018-03-09] MEDS: SODIUM CHLORIDE 0.45% 1,000 ML IV SCH ×2 (02:42→09:52)
[2018-03-09] MEDS: KETOROLAC 30 MG/1 ML IV PRN ×2 (02:43→09:50)
[2018-03-09 04:28] LABS: BASOPHILS # (AUTO) 0.05 x10^3/uL (0-0.1); BASOPHILS % (AUTO) 1 % (0-1); EOSINOPHILS % (AUTO) 1 % (1-7); LYMPHOCYTES # (AUTO) 2.04 x10^3/uL (1-3.4); LYMPHOCYTES % (AUTO) 23 % (22-44); MD NO; MEAN CORPUSCULAR HGB CONC 34.3 g/dL (33.2-36.2); MEAN CORPUSCULAR VOLUME 90.4 fL (81-97); MEAN PLATELET VOLUME 8.4 fL (7.4-10.4); MONOCYTES # (AUTO) 0.54 x10^3/uL (0.2-0.8); MONOCYTES % (AUTO) 6 % (2-9); NEUTROPHILS # (AUTO) 6.11 x10^3/uL (1.8-6.8); NEUTROPHILS % (AUTO) 69 % (42-75); PLATELET COUNT 272 x10^3/uL (130-400); RED BLOOD COUNT 4.57 x10^6/uL (4.38-5.82); RED CELL DISTRIBUTION WIDTH 12.3 % (9.4-14.8)
[2018-03-09 04:39] LABS: ANION GAP 7 mmol/L (5-15); CALCIUM 8.6 mg/dL (8.5-10.1); CHLORIDE 107 mmol/L (98-107); CREATININE 0.69 mg/dL (0.7-1.3)
[2018-03-09] MEDS: INSULIN LISPRO 100 UNITS/ML, PEN SQ-INSULIN SCH ×3 (07:00→15:59)
[2018-03-09 08:05] VITALS: BP 132/83
[2018-03-09] MEDS: SODIUM CHLORIDE FLUSH 10ML SYR IVF SCH (09:29)
[2018-03-09] MEDS: ENOXAPARIN 40 MG/0.4 ML SQ SCH (09:29)
[2018-03-09 14:30] VITALS: BP 132/80
== END 2018-03-09 16:49 | disposition home or self-care (01) | DRG 388 ==
LOC: ED 05:59 → EDIP 07:27 → 3NW 08:17 → DCLOUNGE 03-09 16:25
PROVIDERS: ADMIT Internal Medicine; ATTEND Internal Medicine
DX: K56.600 Partial intestinal obstruction, unspecified as to cause (principal); E10.10 Type 1 diabetes mellitus with ketoacidosis without coma; E10.43 Type 1 diabetes mellitus with diabetic autonomic (poly)neuropathy; F17.210 Nicotine dependence, cigarettes, uncomplicated; K31.84 Gastroparesis; Z79.4 Long term (current) use of insulin; Z83.3 Family history of diabetes mellitus
CPT/HCPCS: 36415; 74022; 99291; J3490; 74177; 78264; 80048; 80053; 82010; 82947; 82962; 83036; 83690; 85025; 96361; 96374; 96375; G0378; J1650; J1885; Q9967; A9541; C9898; J0500; J1815; J2765; J7030

== ENCOUNTER 2018-03-30 19:30 | Emergency (ER) | payer MEDICAID ==
[~2018-03-30] VITALS: Ht 182.9 cm; Wt 69.5 kg
[2018-03-30 19:32] VITALS: BP 133/80
[2018-03-30 20:02] LABS: BASOPHILS # (AUTO) 0.04 x10^3/uL (0-0.1); BASOPHILS % (AUTO) 1 % (0-1); EOSINOPHILS # (AUTO) 0.03 x10^3/uL (0-0.4); EOSINOPHILS % (AUTO) 0 % (1-7); LYMPHOCYTES # (AUTO) 1.27 x10^3/uL (1-3.4); LYMPHOCYTES % (AUTO) 16 % (22-44); MD NO; MEAN CORPUSCULAR HEMOGLOBIN 30.6 pg (27.5-34.5); MEAN CORPUSCULAR VOLUME 90.1 fL (81-97); MEAN PLATELET VOLUME 9.5 fL (7.4-10.4); MONOCYTES # (AUTO) 0.72 x10^3/uL (0.2-0.8); MONOCYTES % (AUTO) 9 % (2-9); NEUTROPHILS # (AUTO) 5.97 x10^3/uL (1.8-6.8); NEUTROPHILS % (AUTO) 74 % (42-75); PLATELET COUNT 222 x10^3/uL (130-400); RED BLOOD COUNT 4.68 x10^6/uL (4.38-5.82); RED CELL DISTRIBUTION WIDTH 12.5 % (9.4-14.8)
[2018-03-30 20:09] LABS: ALBUMIN 3.6 g/dL (3.4-5.0); ANION GAP 9 mmol/L (5-15); CHLORIDE 106 mmol/L (98-107); CREATININE 0.78 mg/dL (0.7-1.3)
[2018-03-30 20:23] LABS: RAPID INFLUENZA A Negative (Negative); RAPID INFLUENZA B Negative (Negative)
[2018-03-30] MEDS ORDERED: BENZONATATE 100 MG CAPSULE PO ONE (20:30)
[2018-03-30] MEDS ORDERED: BENZONATATE 100 MG CAPSULE ONE (20:34)
[2018-03-30] MEDS ORDERED: AZITHROMYCIN 250 MG TABLET ONE (21:28)
[2018-03-30] MEDS ORDERED: AZITHROMYCIN 500 MG TABLET PO ONE (21:30)
[2018-03-30] MEDS ORDERED: AMOXICILLIN 500 MG CAPSULE PO ONE ×2 (21:30)
== END 2018-03-30 22:11 | disposition home or self-care (01) ==
LOC: ED 21:35
DX: J15.9 Unspecified bacterial pneumonia (principal); K21.9 Gastro-esophageal reflux disease without esophagitis; E10.65 Type 1 diabetes mellitus with hyperglycemia
CPT/HCPCS: 36415; 71046; 80048; 82040; 85025; 87400; 99284

== ENCOUNTER 2018-06-13 18:39 | Inpatient (IN) | payer MEDICAID ==
[~2018-06-13] VITALS: Ht 185.4 cm; Wt 66.5 kg
--- NOTE | 2018-06-13 18:58 | NUR ---
FSBS IN TRIAGE "HI"
[2018-06-13] MEDS ORDERED: SODIUM CHLORIDE 0.9% 1,000ML IVBOLUS ONE (19:30)
[2018-06-13 19:32] LABS: BASOPHILS # (AUTO) 0.04 x10^3/uL (0-0.1); BASOPHILS % (AUTO) 0 % (0-1); EOSINOPHILS # (AUTO) 0.01 x10^3/uL (0-0.4); EOSINOPHILS % (AUTO) 0 % (1-7); LYMPHOCYTES # (AUTO) 2.01 x10^3/uL (1-3.4); LYMPHOCYTES % (AUTO) 19 % (22-44); MD NO; MEAN CORPUSCULAR HEMOGLOBIN 30.5 pg (27.5-34.5); MEAN CORPUSCULAR HGB CONC 33.6 g/dL (33.2-36.2); MEAN CORPUSCULAR VOLUME 90.7 fL (81-97); MEAN PLATELET VOLUME 9.6 fL (7.4-10.4); MONOCYTES # (AUTO) 0.27 x10^3/uL (0.2-0.8); MONOCYTES % (AUTO) 3 % (2-9); NEUTROPHILS % (AUTO) 78 % (42-75); PLATELET COUNT 280 x10^3/uL (130-400); RED BLOOD COUNT 5.27 x10^6/uL (4.38-5.82); RED CELL DISTRIBUTION WIDTH 12.9 % (9.4-14.8)
[2018-06-13 19:38] LABS: ANION GAP 21 mmol/L (5-15); CALCIUM 9.5 mg/dL (8.5-10.1); CHLORIDE 96 mmol/L (98-107); CREATININE 1.68 mg/dL (0.7-1.3)
--- NOTE | 2018-06-13 19:46 | NUR ---
[facility] CALLED BY LAB WITH BS 526 ERP AWARE
[2018-06-13 19:51] LABS: ACETONE, SERUM Large (80mg/dL) mg/dL (Negative)
--- NOTE | 2018-06-13 19:58 | NUR ---
PT RESTING COMFORTABLY IN BED AT THIS TIME WITH IV FLUIDS INFUSING. VSS AND PT UPDATED ON GLUCOSE. PT VERBALIZES UNDERSTANDING TO CALL IF ANYTHING NEEDED AND HAS CALL LIGHT WITHIN REACH. AWAITING PT DISPOSITION AT THIS TIME.
[2018-06-13] MEDS ORDERED: REGULAR INSULIN 62.5 UNITS in SODIUM CHLORIDE 0.9% 249.375 ML IV PRN ×2 (20:07→22:09)
[2018-06-13] MEDS ORDERED: SODIUM CHLORIDE 0.9% 1,000 ML IV ONE (20:30)
[2018-06-13] MEDS ORDERED: D5%-0.45% NACL 1,000 ML IV PRN (22:09)
--- NOTE | 2018-06-13 22:16 | NUR ---
PT VSS AND UPDATED. FSBS 157. REPORT OF PT TO RN LELO.
[2018-06-13] MEDS ORDERED: ENOXAPARIN 40 MG/0.4 ML SQ SCH (22:30)
[2018-06-13] MEDS ORDERED: SODIUM CHLORIDE 0.45% 1,000 ML IV SCH (22:30)
[2018-06-13] MEDS ORDERED: ONDANSETRON 2MG/ML, 2ML IVPush PRN (22:30)
[2018-06-13] MEDS ORDERED: GLUCAGON 1 MG IM PRN (22:30)
[2018-06-13] MEDS ORDERED: DEXTROSE 4 GM TAB.CHEW PO PRN (22:30)
[2018-06-13] MEDS ORDERED: DEXTROSE 50%, 50ML SYRINGE IVPush PRN (22:30)
--- NOTE | 2018-06-13 22:42 | NUR ---
PT'S FSBS 157, INSULIN GTT CHANGED TO 3.25, ADDED D5/0.45%NS AT 150ML/HR
[2018-06-13] MEDS ORDERED: POTASSIUM CHLORIDE 20 MEQ in SODIUM CHLORIDE 0.9% 250 ML IV SCH (23:00)
[2018-06-13] MEDS ORDERED: NICOTINE 7 MG/24 HR PATCH.TD24 TD SCH (23:30)
[2018-06-14 00:27] VITALS: BP 106/67
[2018-06-14 00:50] LABS: ANION GAP 6 mmol/L (5-15); CALCIUM 8.6 mg/dL (8.5-10.1); CHLORIDE 111 mmol/L (98-107); CREATININE 0.78 mg/dL (0.7-1.3)
[2018-06-14] MEDS ORDERED: POTASSIUM CHLORIDE 20 MEQ in D5%-0.45% NACL 1,000 ML IV SCH (01:40)
[2018-06-14] MEDS ORDERED: D5%-0.45NACL+KCL 20MEQ 1,000 ML IV SCH (02:00)
[2018-06-14 04:00] VITALS: BP 114/62
[2018-06-14 04:16] LABS: BASOPHILS # (AUTO) 0.08 x10^3/uL (0-0.1); BASOPHILS % (AUTO) 1 % (0-1); EOSINOPHILS # (AUTO) 0.11 x10^3/uL (0-0.4); EOSINOPHILS % (AUTO) 1 % (1-7); LYMPHOCYTES # (AUTO) 3.09 x10^3/uL (1-3.4); LYMPHOCYTES % (AUTO) 37 % (22-44); MD NO; MEAN CORPUSCULAR HEMOGLOBIN 30.8 pg (27.5-34.5); MEAN CORPUSCULAR HGB CONC 34.3 g/dL (33.2-36.2); MEAN CORPUSCULAR VOLUME 89.6 fL (81-97); MEAN PLATELET VOLUME 9.3 fL (7.4-10.4); MONOCYTES # (AUTO) 0.51 x10^3/uL (0.2-0.8); MONOCYTES % (AUTO) 6 % (2-9); NEUTROPHILS # (AUTO) 4.67 x10^3/uL (1.8-6.8); NEUTROPHILS % (AUTO) 55 % (42-75); PLATELET COUNT 242 x10^3/uL (130-400); RED BLOOD COUNT 4.39 x10^6/uL (4.38-5.82); RED CELL DISTRIBUTION WIDTH 12.8 % (9.4-14.8)
[2018-06-14 04:25] LABS: ANION GAP 6 mmol/L (5-15); CHLORIDE 110 mmol/L (98-107); CREATININE 0.62 mg/dL (0.7-1.3)
[2018-06-14 04:43] LABS: HEMOGLOBIN A1C 10.2 % (4.2-6.3)
[2018-06-14] MEDS ORDERED: INSULIN GLARGINE 100 UNITS/ML, PEN SQ-INSULIN SCH ×4 (06:30→21:00)
[2018-06-14] MEDS: INSULIN LISPRO 100 UNITS/ML, PEN SQ-INSULIN SCH ×2 (07:00→12:26)
[2018-06-14] MEDS ORDERED: INSULIN LISPRO 100 UNITS/ML, PEN SQ-INSULIN SCH ×6 (08:00→21:00)
[2018-06-14 08:16] LABS: ANION GAP 7 mmol/L (5-15); CALCIUM 7.9 mg/dL (8.5-10.1); CHLORIDE 109 mmol/L (98-107); CREATININE 0.68 mg/dL (0.7-1.3)
[2018-06-14] MEDS: SODIUM CHLORIDE FLUSH 10ML SYR IVF SCH ×2 (08:28→22:02)
[2018-06-14 12:00] VITALS: BP 114/75
[2018-06-14] MEDS ORDERED: LACTATED RINGERS 1,000 ML IVBOLUS ONE (17:00)
[2018-06-14] MEDS ORDERED: SODIUM CHLORIDE 0.9% 1,000ML IVBOLUS ONE (17:00)
[2018-06-14 17:03] LABS: ANION GAP 11 mmol/L (5-15); CALCIUM 8.3 mg/dL (8.5-10.1); CHLORIDE 99 mmol/L (98-107)
[2018-06-14 20:00] VITALS: BP 119/77
[2018-06-14 21:34] LABS: ANION GAP 11 mmol/L (5-15); CALCIUM 8.5 mg/dL (8.5-10.1); CHLORIDE 106 mmol/L (98-107)
[2018-06-15] MEDS ORDERED: INSULIN LISPRO 100 UNITS/ML, PEN SQ-INSULIN SCH (07:00)
== END 2018-06-14 23:53 | disposition left against medical advice (07) | DRG 638 ==
LOC: ED 19:51 → EDIP 22:15 → CCU 23:10 → 3NE 06-14 17:43 → CCU 06-14 18:20
PROVIDERS: ADMIT Emergency Medicine; ATTEND Family Medicine
DX: E10.10 Type 1 diabetes mellitus with ketoacidosis without coma (principal); E27.40 Unspecified adrenocortical insufficiency; N17.9 Acute kidney failure, unspecified; E86.0 Dehydration; F17.200 Nicotine dependence, unspecified, uncomplicated; G40.909 Epilepsy, unspecified, not intractable, without status epilepticus; J06.9 Acute upper respiratory infection, unspecified; K21.9 Gastro-esophageal reflux disease without esophagitis; E10.65 Type 1 diabetes mellitus with hyperglycemia; Z79.4 Long term (current) use of insulin; Z82.79 Family history of other congenital malformations, deformations and chromosomal abnormalities
CPT/HCPCS: 36415; 71045; 80048; 82010; 82800; 82962; 83036; 85025; 87081; 96374; 96375; 99291; G0378; J1815; J3480; J7030; J7050

== ENCOUNTER 2019-06-08 19:40 | Emergency (ER) | payer MEDICAID ==
[~2019-06-08] VITALS: Ht 180.3 cm; Wt 68.4 kg
[2019-06-08 21:42] LABS: BASOPHILS # (AUTO) 0.04 x10^3/uL (0-0.1); BASOPHILS % (AUTO) 0 % (0-1); EOSINOPHILS # (AUTO) 0.13 x10^3/uL (0-0.4); EOSINOPHILS % (AUTO) 1 % (1-7); LYMPHOCYTES # (AUTO) 3.22 x10^3/uL (1-3.4); LYMPHOCYTES % (AUTO) 31 % (22-44); MD NO; MEAN CORPUSCULAR HEMOGLOBIN 30.7 pg (27.5-34.5); MEAN CORPUSCULAR HGB CONC 33.7 g/dL (33.2-36.2); MEAN CORPUSCULAR VOLUME 90.9 fL (81-97); MEAN PLATELET VOLUME 8.8 fL (7.4-10.4); MONOCYTES # (AUTO) 0.84 x10^3/uL (0.2-0.8); MONOCYTES % (AUTO) 8 % (2-9); NEUTROPHILS # (AUTO) 6.28 x10^3/uL (1.8-6.8); NEUTROPHILS % (AUTO) 60 % (42-75); PLATELET COUNT 255 x10^3/uL (130-400); RED BLOOD COUNT 4.67 x10^6/uL (4.38-5.82); RED CELL DISTRIBUTION WIDTH 12.3 % (9.4-14.8)
[2019-06-08 21:47] LABS: ACETONE, SERUM Moderate(40mg/dL) (Negative)
[2019-06-08 21:54] LABS: ANION GAP 9 mmol/L (5-15); CALCIUM 9.4 mg/dL (8.5-10.1); CHLORIDE 97 mmol/L (98-107)
[2019-06-08 21:58] LABS: ALANINE AMINOTRANSFERASE 30 U/L (12-78); ALKALINE PHOSPHATASE 110 U/L (45-117); CREATININE 1.29 mg/dL (0.7-1.3); TOTAL PROTEIN 7.3 g/dL (6.4-8.2)
--- NOTE | 2019-06-08 22:35 | NUR ---
to room from lobby
--- NOTE | 2019-06-08 22:50 | NUR ---
piv placed, medicated per emar
[2019-06-08] MEDS ORDERED: ONDANSETRON 2MG/ML, 2ML ONE (22:56)
[2019-06-08] MEDS ORDERED: SODIUM CHLORIDE 0.9% 1,000ML IVBOLUS ONE (23:00)
[2019-06-08] MEDS ORDERED: ONDANSETRON 2MG/ML, 2ML IVPush ONE (23:00)
--- NOTE | 2019-06-08 23:24 | NUR ---
1l ns complete ua sent Reports abd pain/nausea improved-asking for food/water-provider made aware
[2019-06-08] MEDS: SODIUM CHLORIDE 0.9% 1,000ML IVBOLUS ONE ×2 (23:26→23:41)
--- NOTE | 2019-06-08 23:30 | NUR ---
2ND LITER NS STATED PER EMAR, PROVIDER PREFER NPO UNTIL ALL TESTING RESULTED pATIENT UPDATED ON ESTIMATED POC
[2019-06-08 23:48] LABS: MICROSCOPIC AUTO
[2019-06-08 23:50] LABS: CULTURE INDICATED? YES
[2019-06-09 00:03] VITALS: BP 110/70
== END 2019-06-09 00:16 | disposition home or self-care (01) ==
LOC: ED 23:30
DX: R31.29 Other microscopic hematuria (principal); E10.9 Type 1 diabetes mellitus without complications; R11.2 Nausea with vomiting, unspecified; R10.84 Generalized abdominal pain; E86.0 Dehydration; I51.7 Cardiomegaly; F17.200 Nicotine dependence, unspecified, uncomplicated
CPT/HCPCS: 36415; 80053; 81001; 82010; 82800; 82962; 83690; 85025; 87086; 93005; 96374; 99284; J2405; J7030; 96361; 99283

== ENCOUNTER 2019-11-08 01:02 | Emergency (ER) | payer MEDICAID ==
[~2019-11-08] VITALS: Ht 182.9 cm; Wt 72.2 kg
[2019-11-08 01:04] VITALS: BP 134/88
--- NOTE | 2019-11-08 02:00 | NUR ---
PT RESTING COMFORTABLY IN GURNEY AT THIS TIME. PT EXPLAINED POC BY CARLOS ROACH. PT VERBALIZES UNDERSTANDING OF POC AT THIS TIME. CALL LIGHT IS WITHIN REACH.
--- NOTE | 2019-11-08 02:25 | NUR ---
PT FOOT WRAPPED WITH DEBBIE WRAP AND PT PROVIDED WITH CRUTCHES FOR AMBULATION NON WEIGHT BEARING. PT IS ABLE TO DEMONSTRATE CORRECT USE OF CRUTCHES PRIOR TO D/C. PT DENIES ANY OTHER NEEDS PERTAINING TO THIS VISIT AND AMBULATES WITH CRUTCHES TO REGISTRATION DESK FOR D/C HOME. PT QUESTIONS ANSWERED AND PT HAS SCRIPT FOR MEDICATIONS UPON D/C.
== END 2019-11-08 02:28 | disposition home or self-care (01) ==
LOC: ED 01:18
DX: S90.31XA Contusion of right foot, initial encounter (principal); G89.11 Acute pain due to trauma; M25.532 Pain in left wrist; X58.XXXA Exposure to other specified factors, initial encounter; Y93.89 Activity, other specified; Y92.098 Other place in other non-institutional residence as the place of occurrence of the external cause; Y99.8 Other external cause status
CPT/HCPCS: 99283

== ENCOUNTER 2019-12-08 23:11 | Emergency (ER) | payer MEDICAID ==
[~2019-12-08] VITALS: Ht 182.9 cm; Wt 77.0 kg
[2019-12-08] MEDS ORDERED: ALBUTEROL/IPRATROPIUM 2.5MG/0.5MG, 3 ML ONE (23:50)
[2019-12-09] MEDS ORDERED: ALBUTEROL/IPRATROPIUM 2.5MG/0.5MG, 3 ML NPPB ONE
--- NOTE | 2019-12-09 00:24 | NUR ---
PT NOTED TO HAVE O2 SAT 88-90% ON RA. REPORTS RELIEF AFTER DUONEB TX. PLACED PT ON 1 L O2 VIA NC AT THIS TIME
[2019-12-09 01:36] VITALS: BP 112/58
== END 2019-12-09 01:38 | disposition home or self-care (01) ==
LOC: ED 23:58
DX: J20.9 Acute bronchitis, unspecified (principal); R06.00 Dyspnea, unspecified; R05 Cough; E11.9 Type 2 diabetes mellitus without complications; K21.9 Gastro-esophageal reflux disease without esophagitis; I21.9 Acute myocardial infarction, unspecified; Z87.891 Personal history of nicotine dependence
CPT/HCPCS: 71046; 93005; 94640; 99283; J7512

== ENCOUNTER 2020-01-21 23:55 | Emergency (ER) | payer MEDICAID ==
[~2020-01-21] VITALS: Ht 182.9 cm; Wt 70.0 kg
[2020-01-22] MEDS ORDERED: IBUPROFEN 600 MG TABLET PO ONE (00:30)
[2020-01-22] MEDS ORDERED: IBUPROFEN 600 MG TABLET ONE (01:16)
--- NOTE | 2020-01-22 01:21 | NUR ---
SPLINT APPLIED TO DIGIT, PT MEDICATED PER MAR
[2020-01-22 01:45] VITALS: BP 124/78
--- NOTE | 2020-01-22 01:47 | NUR ---
Patient given discharge instructions and they have confirmed that they understand the instructions. Patient ambulatory with steady gait. SPLINT APPLIED, PT NAD, DENIES ADDITIONAL NEEDS OR QUESTIONS AT THIS TIME, NO PERSONAL BELONGINGS LEFT IN ROOM AFTER DC
== END 2020-01-22 01:50 | disposition home or self-care (01) ==
LOC: ED 01-22 01:00
DX: S62.656A Nondisplaced fracture of middle phalanx of right little finger, initial encounter for closed fracture (principal); F17.210 Nicotine dependence, cigarettes, uncomplicated; X58.XXXA Exposure to other specified factors, initial encounter; Y93.89 Activity, other specified; Y92.098 Other place in other non-institutional residence as the place of occurrence of the external cause; Y99.8 Other external cause status
CPT/HCPCS: 29130; 99283; 99406

== ENCOUNTER 2020-03-01 04:16 | Emergency (ER) | payer MEDICAID ==
[~2020-03-01] VITALS: Ht 182.9 cm; Wt 66.8 kg
[2020-03-01] MEDS ORDERED: ACETAMINOPHEN 500 MG TABLET ONE (04:44)
[2020-03-01] MEDS ORDERED: ONDANSETRON ODT 4 MG ONE (04:44)
[2020-03-01] MEDS ORDERED: ACETAMINOPHEN 500 MG TABLET PO ONE (05:00)
[2020-03-01] MEDS ORDERED: ONDANSETRON ODT 4 MG PO ONE (05:00)
[2020-03-01 05:16] LABS: BASOPHILS % (AUTO) 1 % (0-1); EOSINOPHILS % (AUTO) 1 % (1-7); LYMPHOCYTES % (AUTO) 35 % (22-44); MEAN CORPUSCULAR HEMOGLOBIN 29.6 pg (27.5-34.5); MEAN CORPUSCULAR HGB CONC 33.1 g/dL (33.2-36.2); MEAN PLATELET VOLUME 9.6 fL (7.4-10.4); MONOCYTES % (AUTO) 6 % (2-9); NEUTROPHILS % (AUTO) 57 % (42-75); PLATELET COUNT 235 x10^3/uL (130-400); RED BLOOD COUNT 4.55 x10^6/uL (4.38-5.82); RED CELL DISTRIBUTION WIDTH 13.7 % (9.4-14.8)
[2020-03-01 05:23] LABS: ALANINE AMINOTRANSFERASE 27 U/L (12-78); ALBUMIN 3.6 g/dL (3.4-5.0); ANION GAP 11 mmol/L (5-15); CALCIUM 9.3 mg/dL (8.5-10.1); CHLORIDE 98 mmol/L (98-107); CREATININE 1.41 mg/dL (0.7-1.3)
[2020-03-01 05:25] LABS: ALKALINE PHOSPHATASE 98 U/L (45-117); BILIRUBIN,TOTAL 0.4 mg/dL (0.2-1.0); TOTAL PROTEIN 6.7 g/dL (6.4-8.2)
[2020-03-01 05:29] LABS: MD NO
[2020-03-01] MEDS ORDERED: INSULIN SINGLE DOSE, ER ONE (05:56)
[2020-03-01] MEDS ORDERED: INSULIN REGULAR 100 UNITS/ML, 3ML VIAL SQ-INSULIN ONE (06:00)
[2020-03-01] MEDS ORDERED: SODIUM CHLORIDE 0.9% 1,000ML IVBOLUS ONE (06:00)
--- NOTE | 2020-03-01 06:06 | NUR ---
PT IS A TYPE 1 DIABETIC. PT STATES HE'S BEEN WORKING A LOT AND REALLY HARD AT HIS JOB. PT STATES HE'S TRIED ASKING HIS CROP SPECIALIST FOR SOME TIME OFF BECAUSE HE'S NOT BEEN FEELING WELL (UPSET STOMACH) TO GIVE HIMSELF TIME TO RECUPERATE. PT STATES HE'S NOT BEEN ABLE TO GET MORE THAN A DAY OFF HOWEVER, AND FEELS LIKE IT'S NOT BEEN ENOUGH TIME FOR HIM TO FULLY RECOVER. PT STATES HE'S BEEN IN D[facility] BEFORE, BUT THAT THIS DOES NOT FEEL LIKE THAT. PT'S RESPIRATIONS ARE WDL. PT CONNECTED TO BP AND O2 MONITORS. MEDICATED PER JUN GIVEN BLANKET AND PILLOW. LIGHTS OFF TO PROMOTE REST. NADN.
[2020-03-01] MEDS ORDERED: SODIUM CHLORIDE 0.9%, 500ML IVBOLUS ONE (06:30)
[2020-03-01] MEDS ORDERED: METOCLOPRAMIDE 5 MG/ML, 2ML IVPush ONE (06:30)
[2020-03-01 06:43] VITALS: BP 104/62
== END 2020-03-01 06:56 | disposition home or self-care (01) ==
LOC: ED 05:20
DX: E86.0 Dehydration (principal); E10.65 Type 1 diabetes mellitus with hyperglycemia; K21.9 Gastro-esophageal reflux disease without esophagitis; F17.210 Nicotine dependence, cigarettes, uncomplicated; N28.9 Disorder of kidney and ureter, unspecified
CPT/HCPCS: 36415; 80053; 82962; 85025; 96360; 99283; J1815; J7030; Q0162

== ENCOUNTER 2020-05-05 00:58 | Emergency (ER) | payer MEDICAID ==
[~2020-05-05] VITALS: Ht 182.9 cm; Wt 68.4 kg
[2020-05-05] MEDS ORDERED: ONDANSETRON 2MG/ML, 2ML ONE (01:20)
[2020-05-05] MEDS ORDERED: ONDANSETRON 2MG/ML, 2ML IVPush ONE (01:30)
[2020-05-05] MEDS ORDERED: SODIUM CHLORIDE 0.9% 1,000ML IVBOLUS ONE (01:30)
--- NOTE | 2020-05-05 01:45 | NUR ---
patient in NAD. ambulated to bathroom without SOB with steady gait. denies pain. denies diarrhea. states he has been "puking his guts out for a few days". does report that he has had these symptoms previously with his type 1 DM but he has been treating his BS at home with prescribed insulin. resting in stretcher in lowest position. call galindo in hand. IVF infusing per order. labs sent. will continue to monitor
[2020-05-05 01:46] LABS: BASOPHILS % (AUTO) 1 % (0-1); EOSINOPHILS % (AUTO) 3 % (1-7); LYMPHOCYTES % (AUTO) 32 % (22-44); MEAN CORPUSCULAR HEMOGLOBIN 30.8 pg (27.5-34.5); MEAN CORPUSCULAR HGB CONC 34.2 g/dL (33.2-36.2); MEAN PLATELET VOLUME 9.1 fL (7.4-10.4); MONOCYTES % (AUTO) 5 % (2-9); NEUTROPHILS % (AUTO) 60 % (42-75); PLATELET COUNT 217 x10^3/uL (130-400); RED BLOOD COUNT 4.45 x10^6/uL (4.38-5.82); RED CELL DISTRIBUTION WIDTH 12.8 % (9.4-14.8)
[2020-05-05 01:47] LABS: MICROSCOPIC NOT IND
[2020-05-05 01:51] LABS: MD NO
[2020-05-05 02:03] LABS: ALANINE AMINOTRANSFERASE 22 U/L (12-78); ALBUMIN 3.6 g/dL (3.4-5.0); ANION GAP 5 mmol/L (5-15); CALCIUM 8.9 mg/dL (8.5-10.1); CHLORIDE 103 mmol/L (98-107); CREATININE 1.19 mg/dL (0.7-1.3)
[2020-05-05 02:05] LABS: ALKALINE PHOSPHATASE 99 U/L (45-117); BILIRUBIN,TOTAL 0.3 mg/dL (0.2-1.0); TOTAL PROTEIN 6.5 g/dL (6.4-8.2)
--- NOTE | 2020-05-05 02:45 | NUR ---
patient resting in bed. reports "feeling better since medication". safety maintained. will continue to monitor.
[2020-05-05] MEDS ORDERED: INSULIN REGULAR 100 UNITS/ML, 3ML VIAL IVPush ONE (03:00)
--- NOTE | 2020-05-05 03:40 | NUR ---
IV insulin administered. waiting 20-30 minutes and will recheck BG. no new complaints. resting in bed using cell phone. will continue to monitor.
[2020-05-05] MEDS ORDERED: DEXTROSE 50%, 50ML SYRINGE ONE (04:12)
--- NOTE | 2020-05-05 04:16 | NUR ---
Repeat BG 31, half amp of D50 given IVP verbal order Dr Griggs.
--- NOTE | 2020-05-05 04:20 | NUR ---
repeat BG taken and 29. MD notified. 8oz OJ provided with mart harris and 1/2 amp D50. patient felt "shaky and hungry". A&Ox4. will continue to closely monitor
[2020-05-05] MEDS ORDERED: DEXTROSE 50%, 50ML SYRINGE IVPush ONE (04:30)
--- NOTE | 2020-05-05 04:49 | NUR ---
repeat BG 122. patient request additional juice. 8oz apple juice provided. discussed case with Dr. Griggs and will recheck again in 15 minutes to ensure patient's BG is not decreasing rapidly again before dc
[2020-05-05 05:15] VITALS: BP 99/62
== END 2020-05-05 05:25 | disposition home or self-care (01) ==
LOC: ED 01:22
DX: E10.43 Type 1 diabetes mellitus with diabetic autonomic (poly)neuropathy (principal); K31.84 Gastroparesis; E10.65 Type 1 diabetes mellitus with hyperglycemia; R11.2 Nausea with vomiting, unspecified; R19.7 Diarrhea, unspecified; K21.9 Gastro-esophageal reflux disease without esophagitis; F17.200 Nicotine dependence, unspecified, uncomplicated
CPT/HCPCS: 36415; 80053; 81003; 82962; 83690; 85025; 96361; 96374; 96375; 99285; J1815; J2405; J7030

== ENCOUNTER 2020-08-03 14:41 | Inpatient (IN) | payer MEDICAID ==
[~2020-08-03] VITALS: Ht 182.9 cm; Wt 65.8 kg
[~2020-08-03 14:41] MED LIST changes: +HYDR-2214 PO; -HYDR-3240 PO
[2020-08-03] MEDS ORDERED: SODIUM CHLORIDE 0.9% 1,000ML IVBOLUS ONE ×2 (15:30→16:30)
[2020-08-03 15:59] LABS: ALBUMIN 4.5 g/dL (3.4-5.0); ANION GAP 22 mmol/L (5-15); CALCIUM 9.6 mg/dL (8.5-10.1); CHLORIDE 95 mmol/L (98-107)
[2020-08-03 16:02] LABS: ALANINE AMINOTRANSFERASE 27 U/L (12-78); ALKALINE PHOSPHATASE 164 U/L (45-117); BASOPHILS % (AUTO) 1 % (0-1); BILIRUBIN,TOTAL 0.5 mg/dL (0.2-1.0); CREATININE 1.37 mg/dL (0.7-1.3); EOSINOPHILS % (AUTO) 0 % (1-7); LYMPHOCYTES % (AUTO) 17 % (22-44); MEAN CORPUSCULAR HGB CONC 33.1 g/dL (33.2-36.2); MEAN PLATELET VOLUME 10.3 fL (7.4-10.4); MONOCYTES % (AUTO) 3 % (2-9); NEUTROPHILS % (AUTO) 80 % (42-75); PLATELET COUNT 247 x10^3/uL (130-400); RED BLOOD COUNT 5.28 x10^6/uL (4.38-5.82); RED CELL DISTRIBUTION WIDTH 11.9 % (9.4-14.8); TOTAL PROTEIN 7.8 g/dL (6.4-8.2)
[2020-08-03 16:03] LABS: MICROSCOPIC NOT IND
[2020-08-03 16:03] LABS: MD NO
[2020-08-03 16:23] LABS: ACETONE, SERUM Large (80mg/dL) (Negative)
[2020-08-03] MEDS ORDERED: REGULAR INSULIN 100 UNITS in SODIUM CHLORIDE 0.9% 99 ML IV PRN ×2 (16:30→18:30)
--- NOTE | 2020-08-03 17:05 | NUR ---
pt in bed wiyth no signs or symptoms of acute distress noted respirations even and unlabored. rn x 2 at bedside to start insulin drip, rn x2 to speak with dr eid about insuin order rate. dr verbally confirms that she wants to start insulin at 5u/hr, rn x2 at bedside to confirm and start drip. pt on environmental monitoring specialist, moved to hospital bed. pt verbalizes apprciation for care and concern. insulin infusing well at left ac.
--- NOTE | 2020-08-03 17:57 | NUR ---
rn in room to assess fsbs, 520 noted. unr at bedside to assess. pt in bed with cradiac monitor in place, ivf infusing at r ac, insulin running at lac. no signs or symptoms of acute distress noted respirations even and unlabored
[2020-08-03] MEDS ORDERED: SODIUM CHLORIDE 0.9% 1,000 ML IV ONE (18:00)
[2020-08-03] MEDS ORDERED: SODIUM CHLORIDE FLUSH 10ML SYR IVF PRN (18:00)
[2020-08-03] MEDS ORDERED: BISACODYL 10 MG SUPP PR PRN (18:30)
[2020-08-03] MEDS ORDERED: ONDANSETRON 2MG/ML, 2ML IVPush PRN (18:30)
[2020-08-03] MEDS ORDERED: DEXTROSE 50%, 50ML SYRINGE IVPush PRN (18:30)
[2020-08-03] MEDS ORDERED: DEXTROSE 4 GM TAB.CHEW PO PRN (18:30)
[2020-08-03] MEDS ORDERED: GLUCAGON 1 MG IM PRN (18:30)
[2020-08-03] MEDS ORDERED: SODIUM BICARB 8.4%, 50ML SYRINGE IVPB ONE (18:30)
[2020-08-03] MEDS ORDERED: LABETALOL 5MG/ML, 20ML IVPush PRN (18:30)
[2020-08-03] MEDS ORDERED: hydrALAzine 20 MG/ML, 1ML IVPush PRN (18:30)
[2020-08-03] MEDS ORDERED: SODIUM CHLORIDE 0.9% 1,000 ML IV SCH (18:30)
[2020-08-03] MEDS ORDERED: D5%-0.45NACL+KCL 20MEQ 1,000 ML IV SCH (18:30)
[2020-08-03] MEDS ORDERED: POLYETHYLENE GLYCOL 17 GM PACKET PO PRN (18:30)
--- NOTE | 2020-08-03 18:42 | NUR ---
PT IN BED WITH NO SIGNS OR SYMPTOMS OF ACUTE DSITRESS NOTED RESPIRATIONS EVEN AND UNLABORED STATES THAT HES FEELING BETTER. PT ON HOSPITAL BED WITH ORACLE HYPERION CONSULTANT IN PLACE, SATTING WELL ON ROOM AIR, CALL LIGHT WITHIN REACH. IVF INFUSING WELL AT R AC, INSULIN RUNNING AT 5U/HOUR AT LEFT AC. PT NOTED TO VOID X2 INTO URINAL, 1500ML OUT.
[2020-08-03] MEDS ORDERED: SODIUM BICARB 8.4%, 50ML SYRINGE ONE (18:48)
--- NOTE | 2020-08-03 18:58 | NUR ---
task rn: repeat fsbs 440 Lab at bedside for repeat bmp
[2020-08-03] MEDS ORDERED: POTASSIUM CHLORIDE 20 MEQ in SODIUM CHLORIDE 0.9% 1,000 ML IV SCH (19:00)
[2020-08-03 19:24] LABS: ANION GAP 20 mmol/L (5-15); CALCIUM 8.6 mg/dL (8.5-10.1); CHLORIDE 105 mmol/L (98-107); CREATININE 1.18 mg/dL (0.7-1.3)
--- NOTE | 2020-08-03 19:24 | NUR ---
PHARMACY CALLED TO CLARIFY TITRATION SCALE (NO INSTRUCTIONS ON TITRATION IF BLOOD SUGAR DROP <80/HR (PREFERRED RATE). PHARMACY WOUL LIKE ELASTIC ASSEMBLER TO LEAVE RATE AT 5UNITS/HR. ELASTIC ASSEMBLER AGREEEABLE. [facility] PAGED TO CLARIFY
[2020-08-03] MEDS ORDERED: ENOXAPARIN 40 MG/0.4 ML ONE (19:33)
[2020-08-03] MEDS: ENOXAPARIN 40 MG/0.4 ML SQ SCH (19:35)
--- NOTE | 2020-08-03 19:47 | NUR ---
THIS RN SPOKE WITH MD FROM [facility], CLARIFIED ORDER FOR INSULIN DRIP AND FOR POTASSIUM ORDER. ORDER FOR POTASSIUM CANCELED, INSULIN DRIP TO CONTINUE AT 5U/HOUR UNTIL NEXT CHECK AND THEN REASSESS TITRATION. PT IN BED WITH NO SIGNS OR SYMPTOMS OF ACUTE DISTRSS NOTED RESPIRATIONS EVEN AND UNLABORED. PT CONTINUES ON CASER IN IN HOSPITAL BED WITH CASER IN IN PLACE AND CALL LIGHT WITHIN REACH
--- NOTE | 2020-08-03 20:16 | NUR ---
FSBS ASSESS AT 299, THIS RN LEFT INSULIN DRIP AT 5U/HOUR. PT IN BED WITH NO SIGNS OR SYMPTOMS OF ACUTE DSITRESS NOTED RESPIRATIONS EVEN AND UNLABORED Addendum: 08/03/20 at 2028 by RAMIRO CORRECTION IV INSUIN DRIP TITRATED TO 4U/HOUR
--- NOTE | 2020-08-03 20:47 | NUR ---
RN IN ROOM TO DECREASE INSULIN DRIP TO 3U/HR
[2020-08-03] MEDS: SODIUM CHLORIDE FLUSH 10ML SYR IVF SCH (21:00)
[2020-08-03] MEDS ORDERED: NICOTINE 14MG/24 HR PATCH.TD24 TD ONE (21:00)
[2020-08-03] MEDS ORDERED: NICOTINE 14MG/24 HR PATCH.TD24 ONE (21:08)
--- NOTE | 2020-08-03 21:44 | NUR ---
THIS RN SPOKE WITH [facility] DOC WHO STATES THAT PT BEING NON TOXIC APPEARING, VITALLY STABLE AND WITH NO SIGNS OR SYMPTOMS OF DISTRESS THAT HE FEELS COMFORTABLE WITH CHECKING BMP AT 2330. PT IN BED WITH SNOW PLOW OPERATOR IN PLACE AND EVEN UNLABORED RESPIRATIONS.
--- NOTE | 2020-08-03 22:37 | NUR ---
PT CONTINUES TO REST PEACEFULLY IN BED, AROUSABLE TO VOICE, DENIES PAIN OR DISCOMFORT NO SIGNS OR SYMPTOMS OF ACUTE DISTRESS NOTED RESPIRATIONS EVEN AND UNLABORED. PT SATTING WELL ON ROOM AIR WITH BED RAILS UP BILATERALLY AND CALL LIGHT WITHIN REACH. INSULIN DRIP TITRATED TO 4U/HR PER PROTOCOL.
[2020-08-03] MEDS ORDERED: ACETAMINOPHEN 325 MG TABLET ONE (23:27)
[2020-08-03] MEDS: ACETAMINOPHEN 325 MG TABLET PO PRN (23:29)
[2020-08-03 23:44] LABS: ANION GAP 11 mmol/L (5-15); CALCIUM 8.5 mg/dL (8.5-10.1); CHLORIDE 110 mmol/L (98-107); CREATININE 1.09 mg/dL (0.7-1.3)
--- NOTE | 2020-08-04 00:04 | NUR ---
RN CALLED [facility] DOC TO DISCUSS CASE, STATES THAT PT IS NO LONGER CRITICAL CARE AND INSTRUCTIONS ARE FOLLOWS: [facility] DOC TO ORDER BASAL DOSE OF INSULIN, THEN PT TO CONTINUE ON DRIP FOR 2 HOURS AFTER BASAL DOSE. AT THAT TIME PT IS SAFE TO ADMIT TO MEDICAL UNIT. PT IN BED WITH NO SIGNS OR SYMPTOMS OF ACUTE DSITRSS NOTED RESPIRATIONS EVEN AND UNLABORED.
[2020-08-04] MEDS ORDERED: INSULIN GLARGINE 100 UNITS/ML, PEN SQ-INSULIN ONE (00:15)
[2020-08-04] MEDS: SODIUM CHLORIDE 0.9% 1,000 ML IV SCH ×6 (00:30→18:28)
--- NOTE | 2020-08-04 00:54 | NUR ---
PT IN BED COMPLAINING OF BACK PAIN. MD PAGED TO REQUEST MORE PAIN MEDICATION, TYLENOL INEFFECTIVE. PT IN BED WITH CERTIFIED GREEN BUILDING ENGINEER IN PLACE AND CALL LIGHT WITHIN REACH, NO SIGNS OR SYMPTOMS OF ACUTE DISTRESS NOTED RESPIRATIONS EVEN AND UNLABORED. PT NOTED TO HAVE VOIDED 1000ML INTO URINAL.
[2020-08-04] MEDS ORDERED: IBUPROFEN 600 MG TABLET PO PRN (01:00)
[2020-08-04] MEDS: INSULIN LISPRO 100 UNITS/ML, PEN SQ-INSULIN SCH ×4 (01:02→21:03)
[2020-08-04] MEDS ORDERED: IBUPROFEN 600 MG TABLET ONE (01:10)
--- NOTE | 2020-08-04 01:23 | NUR ---
PT MEDIACTED ORDERED, PT VERBALIZES APPRECIATION FOR CARES AND CONCERN. PT PROVIDED A TUCKEY SANDWICH AND A BAG OF CHIPS PER [facility] DIET. PT DENIES NEED AT THIS TIME. IN BED WITH NO SIGNS OR SYMPTOMS OF ACUTE DSITRES NOTED RESPIRATIONS EVEN AND UNLABORED
--- NOTE | 2020-08-04 01:59 | NUR ---
THIS RN SPOKE WITH [facility], STATES THAT HE WONT ORDER ANY FURTHER MEDICATION FOR PTS BACK PAIN. THIS RN MADE A WARM PACK FOR PT, WHO VERBALIZES APPRECIATION AND IMPROVEMENT WITH APPLICATION OF WARMTH. PT CONTINUES ON FARM MACHINERY ASSEMBLER, SATTING WELL ON ROOM AIR, NO SIGNS OR SYMPTOMS OF ACUTE DISTRESS NOTED RESPIRATIONS EVEN AND UNLABORED
--- NOTE | 2020-08-04 02:45 | NUR ---
REPORT CALLED TO FLOOR, PT AWARE AND AGREEABLE WITH PLAN OF CARE. PT IN BED WITH NO SIGNS OR SYMPTOMS OF ACUTE DSITRESS NOTED RESPIRATIONS EVEN AND UNLABORED. PT GIVEN HIS BELONGINGS AND INSULIN PENS FOR TRANSPORT TO FLOOR. PT READY FOR TRANSPORT.
[2020-08-04 03:24] VITALS: BP 128/76
[2020-08-04 03:31] LABS: BASOPHILS % (AUTO) 1 % (0-1); EOSINOPHILS % (AUTO) 0 % (1-7); LYMPHOCYTES % (AUTO) 20 % (22-44); MEAN CORPUSCULAR HEMOGLOBIN 29.9 pg (27.5-34.5); MEAN PLATELET VOLUME 9.5 fL (7.4-10.4); MONOCYTES % (AUTO) 7 % (2-9); NEUTROPHILS % (AUTO) 73 % (42-75); PLATELET COUNT 229 x10^3/uL (130-400); RED BLOOD COUNT 4.56 x10^6/uL (4.38-5.82); RED CELL DISTRIBUTION WIDTH 11.7 % (9.4-14.8)
[2020-08-04 03:32] LABS: ANION GAP 7 mmol/L (5-15); CALCIUM 8.2 mg/dL (8.5-10.1); CHLORIDE 111 mmol/L (98-107); CREATININE 0.94 mg/dL (0.7-1.3)
[2020-08-04 03:38] LABS: MD NO
[2020-08-04] MEDS: ACETAMINOPHEN 325 MG TABLET PO PRN ×2 (06:01→09:38)
[2020-08-04 06:49] VITALS: BP 123/65
[2020-08-04 07:37] LABS: ANION GAP 10 mmol/L (5-15); CALCIUM 8.3 mg/dL (8.5-10.1); CHLORIDE 109 mmol/L (98-107); CREATININE 0.84 mg/dL (0.7-1.3)
[2020-08-04] MEDS: SODIUM CHLORIDE FLUSH 10ML SYR IVF SCH ×2 (08:56→21:01)
[2020-08-04] MEDS ORDERED: INSULIN LISPRO 100 UNITS/ML, PEN SQ-INSULIN PRN (11:00)
[2020-08-04] MEDS ORDERED: [UNRECOGNIZED DRUG - CODE] TD (11:31)
[2020-08-04] MEDS ORDERED: INSU100I13 SQ-INSULIN (11:31)
[2020-08-04] MEDS ORDERED: GLUC3SPR NAS (11:31)
[2020-08-04] MEDS ORDERED: INSU100I11 SQ-INSULIN (11:31)
[2020-08-04] MEDS ORDERED: BLOO-377 TP (11:36)
[2020-08-04] MEDS ORDERED: freestyle libre TD (11:42)
[2020-08-04] MEDS ORDERED: [UNRECOGNIZED DRUG - OTHER] TD (11:45)
[2020-08-04] MEDS ORDERED: INSULIN LISPRO 100 UNITS/ML, PEN SQ-INSULIN SCH ×4 (12:00→17:00)
[2020-08-04 12:06] VITALS: BP 115/63
[2020-08-04 12:13] LABS: ANION GAP 13 mmol/L (5-15); CALCIUM 8.2 mg/dL (8.5-10.1); CHLORIDE 104 mmol/L (98-107); CREATININE 0.88 mg/dL (0.7-1.3)
[2020-08-04] MEDS ORDERED: INSULIN LISPRO 100 UNITS/ML, PEN SQ-INSULIN ONE (15:30)
[2020-08-04 16:30] LABS: ANION GAP 12 mmol/L (5-15); CALCIUM 8.2 mg/dL (8.5-10.1); CHLORIDE 105 mmol/L (98-107); CREATININE 0.94 mg/dL (0.7-1.3)
[2020-08-04] MEDS: ENOXAPARIN 40 MG/0.4 ML SQ SCH (18:28)
[2020-08-04 18:51] VITALS: BP 134/80
[2020-08-04] MEDS ORDERED: INSULIN GLARGINE 100 UNITS/ML, PEN SQ-INSULIN SCH (21:00)
[2020-08-05 00:49] VITALS: BP 145/82
[2020-08-05 01:16] LABS: ANION GAP 9 mmol/L (5-15); CALCIUM 8.7 mg/dL (8.5-10.1); CHLORIDE 109 mmol/L (98-107); CREATININE 0.93 mg/dL (0.7-1.3)
[2020-08-05] MEDS ORDERED: POTASSIUM CHLORIDE 20 MEQ TAB.ER.PRT PO ONE (01:30)
[2020-08-05] MEDS: SODIUM CHLORIDE 0.9% 1,000 ML IV SCH ×2 (03:48→04:25)
[2020-08-05 05:24] LABS: BASOPHILS % (AUTO) 0 % (0-1); EOSINOPHILS % (AUTO) 1 % (1-7); LYMPHOCYTES % (AUTO) 28 % (22-44); MEAN CORPUSCULAR HGB CONC 34.2 g/dL (33.2-36.2); MEAN PLATELET VOLUME 9.5 fL (7.4-10.4); MONOCYTES % (AUTO) 5 % (2-9); NEUTROPHILS % (AUTO) 66 % (42-75); PLATELET COUNT 215 x10^3/uL (130-400); RED CELL DISTRIBUTION WIDTH 11.9 % (9.4-14.8)
[2020-08-05 05:27] LABS: MD NO
[2020-08-05 05:30] LABS: ANION GAP 6 mmol/L (5-15); CALCIUM 8.5 mg/dL (8.5-10.1); CHLORIDE 109 mmol/L (98-107); CREATININE 0.79 mg/dL (0.7-1.3)
[2020-08-05 07:45] VITALS: BP 132/76
[2020-08-05] MEDS ORDERED: INSULIN LISPRO 100 UNITS/ML, PEN SQ-INSULIN SCH ×5 (08:00→12:00)
[2020-08-05] MEDS: INSULIN LISPRO 100 UNITS/ML, PEN SQ-INSULIN SCH ×3 (08:30→14:57)
[2020-08-05] MEDS: SODIUM CHLORIDE FLUSH 10ML SYR IVF SCH (09:00)
[2020-08-05] MEDS ORDERED: INSULIN LISPRO 100 UNIT/ML, 3ML VIAL SQ-INSULIN SCH (11:00)
== END 2020-08-05 15:30 | disposition home or self-care (01) | DRG 638 ==
LOC: ED 17:18 → EDIP 18:15 → 4WST 08-04 03:16 → DCLOUNGE 08-05 15:25
PROVIDERS: ADMIT Student in an Organized Health Care Education/Training Program; ATTEND Student in an Organized Health Care Education/Training Program
DX: E10.10 Type 1 diabetes mellitus with ketoacidosis without coma (principal); E87.1 Hypo-osmolality and hyponatremia; R42 Dizziness and giddiness; E87.6 Hypokalemia; F17.200 Nicotine dependence, unspecified, uncomplicated; Z79.4 Long term (current) use of insulin; Z87.11 Personal history of peptic ulcer disease; Z91.14 Patient's other noncompliance with medication regimen; Z72.89 Other problems related to lifestyle; Z83.3 Family history of diabetes mellitus
CPT/HCPCS: 36415; 71045; 80048; 80053; 81003; 82010; 82800; 82962; 83036; 83735; 84100; 85025; 93005; 96360; 99291; G0378; J1650; J2405; J1815; J3480; J7030

== ENCOUNTER 2020-12-25 22:32 | Emergency (ER) | payer MEDICAID ==
[~2020-12-25] VITALS: Ht 182.9 cm; Wt 69.9 kg
[~2020-12-25 22:32] MED LIST changes: +BLOO-377 TP; +GLUC3SPR NAS; +INSU100I11 SQ-INSULIN; +INSU100I13 SQ-INSULIN; +[UNRECOGNIZED DRUG - CODE] TD; +[UNRECOGNIZED DRUG - OTHER] TD; +freestyle libre TD
--- NOTE | 2020-12-25 23:29 | NUR ---
crate opener: patient to room from lobby.
--- NOTE | 2020-12-25 23:35 | NUR ---
ASSUMED CARE OF PATIENT. PATIENT REPORTS N/V X1 DAYS. VS STABLE. CALL LIGHT IN PLACE. WILL CONTINUE TO MONITOR.
[2020-12-25] MEDS ORDERED: ONDANSETRON 2MG/ML, 2ML ONE (23:59)
[2020-12-25] MEDS ORDERED: MORPHINE SULFATE 4 MG/ML, 1ML ONE (23:59)
[2020-12-25] MEDS ORDERED: METOCLOPRAMIDE 5 MG/ML, 2ML ONE (23:59)
[2020-12-26] MEDS ORDERED: ONDANSETRON 2MG/ML, 2ML IVPush ONE
[2020-12-26] MEDS ORDERED: MORPHINE SULFATE 4 MG/ML, 1ML IVPush PRN
[2020-12-26] MEDS ORDERED: METOCLOPRAMIDE 5 MG/ML, 2ML IVPush ONE
[2020-12-26] MEDS ORDERED: SODIUM CHLORIDE 0.9% 1,000ML IVBOLUS ONE
--- NOTE | 2020-12-26 01:21 | NUR ---
PT'S FSBS WAS 42. PT GIVEN JUICE PER DR KIDD. PT A&O X4.
[2020-12-26 01:35] LABS: BASOPHILS % (AUTO) 2 % (0-1); EOSINOPHILS % (AUTO) 3 % (1-7); LYMPHOCYTES % (AUTO) 50 % (22-44); MEAN CORPUSCULAR HEMOGLOBIN 30.4 pg (27.5-34.5); MEAN CORPUSCULAR HGB CONC 33.8 g/dL (33.2-36.2); MEAN PLATELET VOLUME 8.9 fL (7.4-10.4); MONOCYTES % (AUTO) 10 % (2-9); NEUTROPHILS % (AUTO) 36 % (42-75); PLATELET COUNT 306 x10^3/uL (130-400); RED BLOOD COUNT 4.75 x10^6/uL (4.38-5.82); RED CELL DISTRIBUTION WIDTH 12.7 % (9.4-14.8)
[2020-12-26 01:40] LABS: ACETONE, SERUM Trace (Negative)
[2020-12-26 01:43] LABS: ALANINE AMINOTRANSFERASE 30 U/L (12-78); ALBUMIN 3.4 g/dL (3.4-5.0); ANION GAP 6 mmol/L (5-15); CALCIUM 9.4 mg/dL (8.5-10.1); CHLORIDE 102 mmol/L (98-107); CREATININE 0.66 mg/dL (0.7-1.3)
[2020-12-26] MEDS ORDERED: DEXTROSE 50%, 50ML SYRINGE ONE (01:43)
[2020-12-26 01:45] LABS: ALKALINE PHOSPHATASE 125 U/L (45-117); BILIRUBIN,TOTAL 0.2 mg/dL (0.2-1.0); TOTAL PROTEIN 7.1 g/dL (6.4-8.2)
--- NOTE | 2020-12-26 01:47 | NUR ---
AFTER SEVERAL GLASSES OF JUICE, PT'S BLOOD SUGAR WAS 39. DR KIDD AWARE. PT GIVEN DEXTROSE PER DR KIDD. SEE MAR.
--- NOTE | 2020-12-26 01:51 | NUR ---
BEDSIDE REPORT GIVEN TO ALEAH MORENO
[2020-12-26 01:52] LABS: PH, VENOUS 7.388 pH (7.320-7.420)
[2020-12-26 01:53] LABS: O2 FLOW 2 L/min
--- NOTE | 2020-12-26 01:57 | NUR ---
ZULEMA RN, REPORT FROM [facility]
[2020-12-26] MEDS ORDERED: DEXTROSE 50%, 50ML SYRINGE IVPush ONE (02:00)
[2020-12-26 02:39] VITALS: BP 102/69
--- NOTE | 2020-12-26 02:52 | NUR ---
BG - 125, REPEAT WAS 155 AFTER GIVEN JELLY, PEANUT BUTTER, AND ODILIA CRACKERS
--- NOTE | 2020-12-26 03:02 | NUR ---
PATIENT ALERT AND ORIENTED TIMES 4, AMBULATED WITHOUT ASSISTANCE, VSS.
== END 2020-12-26 03:07 | disposition home or self-care (01) ==
LOC: ED 23:59
DX: R11.2 Nausea with vomiting, unspecified (principal); R10.9 Unspecified abdominal pain
CPT/HCPCS: 80053; 82010; 82803; 82962; 83690; 85025; 96361; 96374; 96375; 99284; J2270; J2405; J2765; J7030

== ENCOUNTER 2021-01-01 19:20 | Emergency (ER) | payer MEDICAID ==
[~2021-01-01] VITALS: Ht 182.9 cm; Wt 69.2 kg
[2021-01-01 19:52] VITALS: BP 119/79
[2021-01-01] MEDS ORDERED: LIDOCAINE 1%, 10ML INFIL ONE (20:00)
--- NOTE | 2021-01-01 21:44 | NUR ---
NIL X 1
--- NOTE | 2021-01-01 21:58 | NUR ---
NIL X 2
--- NOTE | 2021-01-01 22:08 | NUR ---
NIL X 3
== END 2021-01-01 22:10 | disposition left against medical advice (07) ==
LOC: ED 19:45
DX: L02.215 Cutaneous abscess of perineum (principal)
CPT/HCPCS: 99281